=== PATIENT | male | born 1990 | race Caucasian/White ===

== ENCOUNTER → 2020-12-30 | Outpatient (CLI) | payer OTHER | LOC: RAD 13:47 | DX: R00.0 Tachycardia, unspecified (principal); R91.8 Other nonspecific abnormal finding of lung field | CPT/HCPCS: 71046; 93005 ==

== ENCOUNTER → 2021-07-21 | Outpatient (CLI) | payer OTHER | LOC: RAD 15:42 | DX: Z11.1 Encounter for screening for respiratory tuberculosis (principal) | CPT/HCPCS: 71046 ==